=== PATIENT | male | born 1985 | race Caucasian/White ===

== ENCOUNTER → 2022-02-27 11:53 | Outpatient (BNVA) | payer SELFPAY | PROVIDERS: Visit Provider Emergency Medicine | DX: R07.9 Chest pain, unspecified (principal); R09.1 Pleurisy; J40 Bronchitis, not specified as acute or chronic | CPT/HCPCS: 71046 ==

== ENCOUNTER → 2022-06-25 16:11 | Outpatient (BNVA) | payer OTHER, SELFPAY | PROVIDERS: Visit Provider Nurse Practitioner | DX: Z79.899 Other long term (current) drug therapy (principal) | CPT/HCPCS: 80061; 83036 ==

== ENCOUNTER 2023-03-09 21:36 | Inpatient (IN) | payer MEDICAID, SELFPAY ==
--- NOTE | 2023-03-09 21:45 | ED.C_ITS ---
HPI - Psych 2 General: Chief Complaint: Psychiatric Symptoms Stated Complaint: MHE Eval Time Seen by Provider: 03/09/23 21:39 Source: patient Mode of arrival: ambulatory Limitations: no limitations History of Present Illness: 37-year-old male has a history of schizo phrenia states he used to be on Abilify has not been on meds for quite some time. Patient states has been feeling delusional he appears quite manic here he has loose is associations very pressured speech she is telling me that he is discovered new ground breaking ways in the marijuana growth cycle that is not making any sense. He states that he is feeling like he is may be having delusions and paranoia and does feel manic as well. He states he was admitted to the [facility] 7 years ago he did use meth 3 weeks ago Associated symptoms: Reports delusions; Deny depression Review of Systems 2 Const: Denies: fever(s), chills, body aches or change in appetite ENMT: Denies: throat pain or dental pain Card: Denies: chest pain Resp: Denies: dyspnea GI: Denies: abdominal pain, nausea, vomiting or diarrhea Musc: Denies: neck pain or back pain Skin/Breast: Denies: rash Neuro: Denies: headache(s) Psych: Reports: mood swings and paranoia; Denies: depression Cedric/Lymph: Denies: easy bruising All/Imm: Denies: urticaria PFSH ED 2 PFSH: Medical History Major depressive disorder, recurrent, 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, mild, in early remission Other stimulant dependence, in remission Alcohol dependence, in remission Nicotine dependence, cigarettes, uncomplicated Major depressive disorder, recurrent severe without psychotic features Cannabis dependence, uncomplicated Psychiatric care Family History Grandmother Cancer Grandfather Cancer prostate CA Family/Other Cancer Family/Other Cancer Mother Graves disease Denies family history of Diabetes CAD (coronary artery disease) Clotting disorder Dementia Hyperlipidemia Psychiatric illness Chronic kidney disease (CKD) Anesthesia complication Bleeding disorder Lung disease Hypertension Stroke Social History Smoking and tobacco/nicotine status: current every day tobacco/nicotine user cigarettes Packs smoked per day: 1 [ Other cigarette details: 1PPD, 20PY] Alcohol intake: former Former alcohol use details: quit 1yr ago Substance/Drug Use: current Substance/Drug use frequency: daily Lives independently: Yes Marital status: Single Number of children: 0 Current occupational status: unemployed Current gender identity: Male Physical Exam 2 Const: COMMON NORMALS: patient oriented x3 HENMT: COMMON NORMALS: normocephalic and atraumatic HEAD & SCALP: n ormocephalic and atraumatic Eye: COMMON NORMALS: Equal, round and reactive pupils present and EOMs intact bilaterally PUPIL: Yes Equal, round and reactive pupils present Neck/C-Spine: COMMON NORMALS: full ROM and supple Chest: COMMONS NORMALS: normal inspection of the chest Resp: COMMON NORMALS: normal respiratory effort Cardio: COMMON NORMALS: regular rhythm and No murmurs present (Cardio) R ATE: tachycardic RHYTHM: regular rhythm GI: COMMON NORMALS: Normal to inspection, nondistended, normoactive bowel sounds present, Soft to palpation, non-tender and no masses PALPATION: Yes Soft to palpation Extremity: COMMON NORMALS: normal to inspection and full ROM Neuro: COMMON NORMALS: patient oriented x3, moves all extremities and no focal motor deficits Psych: COMMON NORMALS: mental status grossly normal and cooperative SPEECH: Yes excessive MOOD & AFFECT: Yes elevated mood THOUGHT PROCESS: Loose association thought process present and racing thoughts THOUGHT CONTENT: Yes delusions Skin: COMMON NORMALS: no rashes or lesions noted and no wounds GENERAL SKIN EXAM: no rashes or lesions noted Course 2 Vital Signs: Vital signs: Vital Signs Temperature 97.6 F 03/09/23 21:49 Pulse Rate 141 H 03/09/23 21:49 Respiratory Rate 18 03/09/23 21:49 Blood Pressure 138/112 03/09/23 21:49 Pulse Oximetry 98 03/09/23 21:49 Oxygen Delivery Me thod Room Air 03/09/23 21:49 MDM - Psych Medical Decision Making Patient presents here with acute psychosis along with delusions patient is medically cleared placed under 96-hour hold spoke to psychiatrist will admit. Medical Records I reviewed the patient's medical records. Lab Data I reviewed the patient's lab results. 03/09/23 21:50 03/09/23 21:50 Laboratory Results WBC 9.16 10^3/uL (3.29-11.43) 03/09/23 21:50 RBC 5.27 10^6/uL (3.85-5.65) 03/09/23 21:50 Hgb 16.00 g/dL (11.27-16.99) 03/09/23 21:50 Hct 47.5 % (37-53) 03/09/23 21:50 MCV 90.1 fl (82-101) 03/09/23 21:50 MCH 30.4 pg (27-33) 03/09/23 21:50 MCHC 33.7 g/dL (30-55) 03/09/23 21:50 RDW 14.6 % (12.1-15.1) 03/09/23 21:50 Plt Count 171 10^3/cmm (157-399) 03/09/23 21:50 MPV 10.6 fL (7.4-10.4) H 03/09/23 21:50 Neut % (Auto) 67.6 % 03/09/23 21:50 Lymph % (Auto) 25.3 % 03/09/23 21:50 Gilliam % (Auto) 5.9 % 03/09/23 21:50 Eos % (Auto) 0.1 % 03/09/23 21:50 Baso % (Auto) 0.9 % 03/09/23 21:50 Neut # (Auto) 6.19 10^3/uL (1.8-7.7) 03/09/23 21:50 Lymph # (Auto) 2.3 10^3/uL (0.8-4.8) 03/09/23 21:50 Gilliam # (Auto) 0.5 10^3/uL (0.2-0.9) 03/09/23 21:50 Eos # (Auto) 0.0 10^3/uL (0.0-0.8) 03/09/23 21:50 Baso # (Auto) 0.1 10^3/uL (0.0-0.1) 03/09/23 21:50 Nucleated RBC % (auto) 0 % 03/09/23 21:50 Nucleated RBCs # 0.0 /100WBC 03/09/23 21:50 Sodium 135 mmol/L (136-145) L 03/09/23 21:50 Potassium 3.9 mmol/L (3.5-5.1) 03/09/23 21:50 Chloride 97 mmol/L (98-107) L 03/09/23 21:50 Carbon Dioxide 17 mmol/L (22-29) L 03/09/23 21:50 Anion Gap 24.9 (5-19) H 03/09/23 21:50 BUN 9 mg/dL (6-20) 03/09/23 21:50 Creatinine 1.1 mg/dL (0.7-1.2) 03/09/23 21:50 GFR Calculation 76.2 mL/min (90-130) L 03/09/23 21:50 Glucose 164 mg/dL (65-115) H 03/09/23 21:50 Calculated Osmolality 282 mOsm/kg (285-295) L 03/09/23 21:50 Calcium 10.2 mg/dL (8.5-10.5) 03/09/23 21:50 Total Bilirubin 0.5 mg/dL (0.15-1.2) 03/09/23 21:50 AST 16 U/L (0-40) 03/09/23 21:50 ALT 7 U/L (0-41) 03/09/23 21:50 Alkaline Phosphatase 80 U/L (40-130) 03/09/23 21:50 Total Protein 8.1 g/dL (6.6-8.7) 03/09/23 21:50 Albumin 5.1 g/dL (3.5-5.2) 03/09/23 21:50 Globulin 3.0 g/dL (1.3-4.6) 03/09/23 21:50 Salicylates < 0.3 mg/dL (3-10) L 03/09/23 21:50 Urine Opiates Screen Negative ng/mL (Negative) 03/09/23 22:05 Acetaminophen < 5.0 ug/mL (10-30) L 03/09/23 21:50 Ur Barbiturates Screen Negative ng/mL (Negative) 03/09/23 22:05 Ur Phencyclidine Scrn Negative ng/mL (Negative) 03/09/23 22:05 Ur Amphetamines Screen Negative ng/mL (Negative) 03/09/23 22:05 U Benzodiazepines Scrn Negative ng/mL (Negative) 03/09/23 22:05 Urine Cocaine Screen Negative ng/mL (Negative) 03/09/23 22:05 U Marijuana (THC) Screen Positive ng/mL (Negative) H 03/09/23 22:05 Ethyl Alcohol < 10 mg/dL (0-10) 03/09/23 21:50 No radiology studies performed this visit Discharge Plan Discharge Patient Disposition: Admitted As Inpatient Clinical Impression: Acute psychosis Condition: Stable Coding Level of Care Code ED Recreation Activities Coordinator for Stevie Forde
[2023-03-09 21:49] VITALS: BP 138/112; PULSE 141; RESP 18; TEMP 36.4; O2SAT 98; BMI 20.5
[2023-03-09 21:58] LABS: Basophils # 0.1 10^3/uL (0.0-0.1); Basophils % 0.9 %; Eosinophils % 0.1 %; Hematocrit 47.5 % (37-53); Lymphocytes # 2.3 10^3/uL (0.8-4.8); Lymphocytes % 25.3 %; Mean Corpuscular HGB Conc 33.7 g/dL (30-55); Mean Corpuscular Hemoglobin 30.4 pg (27-33); Mean Corpuscular Volume 90.1 fl (82-101); Mean Platelet Volume 10.6 fL (7.4-10.4); Monocytes # 0.5 10^3/uL (0.2-0.9); Monocytes % 5.9 %; Neutrophils # 6.19 10^3/uL (1.8-7.7); Neutrophils % 67.6 %; Nucleated Red Blood Cells % 0 %; Platelet Count 171 10^3/cmm (157-399); Red Blood Count 5.27 10^6/uL (3.85-5.65); Red Cell Distribution Width 14.6 % (12.1-15.1); White Blood Count 9.16 10^3/uL (3.29-11.43)
[2023-03-09] MEDS: haloperidol inj 5 mg/mL INJ 1 mL IM (22:07)
[2023-03-09 22:13] LABS: Alanine Aminotransferase 7 U/L (0-41); Albumin Level 5.1 g/dL (3.5-5.2); Alkaline Phosphatase 80 U/L (40-130); Aspartate Amino Transferase 16 U/L (0-40); Blood Urea Nitrogen 9 mg/dL (6-20); Calcium 10.2 mg/dL (8.5-10.5); Carbon Dioxide 17 mmol/L (22-29); Chloride 97 mmol/L (98-107); Glomerular Filtration Rate 76.2 mL/min (90-130); Glucose 164 mg/dL (65-115); Osmolality Calculated 282 mOsm/kg (285-295); Sodium 135 mmol/L (136-145); Total Bilirubin 0.5 mg/dL (0.15-1.2); Total Protein 8.1 g/dL (6.6-8.7)
[2023-03-09 22:19] LABS: Acetaminophen < 5.0 ug/mL (10-30); Alcohol Level < 10 mg/dL (0-10); Anion Gap 24.9 (5-19); Potassium 3.9 mmol/L (3.5-5.1); Salicylate < 0.3 mg/dL (3-10)
[2023-03-09 22:22] LABS: Slide Review Slide Review Perform
[2023-03-09 22:25] LABS: Amphetamines Screen Urine Negative (Negative); Barbiturates Screen Urine Negative (Negative); Benzodiazepines Screen Urine Negative (Negative); Cocaine Screen Urine Negative (Negative); Opiate Screen Urine Negative (Negative); PCP Screen Urine Negative (Negative); THC Screen Urine Positive (Negative)
--- NOTE | 2023-03-09 22:32 | PC.NURSE ---
Pt served with copy of 96 Hour hold by this RN and physician. Pt is manic and unable to calm enough to listen to instructions.
[2023-03-09 22:36] VITALS: BP 106/63; PULSE 107; RESP 18; TEMP 36.5; O2SAT 96
[2023-03-09 22:40] VITALS: BP 103/73; PULSE 103; RESP 16; O2SAT 100
[2023-03-09 22:58] VITALS: BP 103/73; PULSE 103; RESP 16; TEMP 36.4; O2SAT 100
[2023-03-09] MEDS: nicotine 2 mg Gum BUCCAL (23:12)
[2023-03-10 06:00] VITALS: RESP 16
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
[2023-03-10 14:00] VITALS: BP 113/71; PULSE 85; RESP 15; TEMP 36.9; O2SAT 95
[2023-03-10] MEDS: nicotine 2 mg Gum BUCCAL (14:36)
[2023-03-10] MEDS: paliperidone ER 6 mg Tablet PO (18:09)
[2023-03-10 20:15] VITALS: RESP 16
[2023-03-11 06:00] VITALS: BP 104/66; PULSE 76; RESP 16; TEMP 36.5; O2SAT 99
[2023-03-11] MEDS: nicotine 4 mg lozenge MUCOUS MEM (06:02)
[2023-03-11] MEDS: paliperidone ER 6 mg Tablet PO (08:46)
[2023-03-11] MEDS: nicotine 21 mg Patch 1 PATCH TRANSDERMA (10:32)
--- NOTE | 2023-03-11 13:47 | P.NPUPN_ITS ---
Subjective NPU 2 Subjective: Patient presented today reporting that he is ready to go home. However he continued to demonstrate the confusion and psychosis consistent with yesterday. He continued to have flight of ideas per staff and direct observation with his conversation seeming fairly manic and him just speaking words until he ran out of breath. He tried his best to communicate reasons for being appropriate for discharge but none of them made sense and most of them were just a collection of words that approximated can I leave. Mental Status Exam 2 MSE Comments: This is a short diminutive white male in hospital scrubs with limited grooming and eye contact. No abnormal movements except for significant psychomotor agitation. Somewhat cooperative with exam and moderate distress. Speech was increased rate and volume and fairly pressured. Mood described as okay, affect hyper. Thought process disorganized then tangential. Thought content: Patient denied suicidal or homicidal ideation, there were no delusions reported but clear paranoia and persecutory delusions noted, he did not report auditory or visual hallucinations. Attention and concentration was impaired and memory was unreliable but none were formally tested. He is alert and oriented to person and place. Insight, judgment and impulse control are impaired. Vitals/I&O/Wt Last Vital Signs Temp 97.7 F 03/11/23 06:00 Pulse 76 03/11/23 06:00 Resp 16 03/11/23 06:00 BP 104/66 03/11/23 06:00 Pulse Ox 99 03/11/23 06:00 O2 Del Method Room Air 03/11/23 06:00 Weight last 48 hrs Weight 54.431 kg Data NPU 03/09/23 21:50 03/09/23 21:50 A&P Assessment and plan (1) Acute psychosis: (2) Methamphetamine use disorder, severe: (3) Nicotine dependence, cigarettes, uncomplicated: (4) Cannabis dependence, uncomplicated: Plan This is a 37-year-old white male with a long history of addiction, mental health treatment and psychosis as far back as 5 to 6 years ago with methamphetamine seeming to be the inciting presence who presents with florid psychosis and intermittent reports of active drug use considering a trial of Invega. 1.? Continue current medication. Initiate Invega 6 mg p.o. daily. 2.? Encourage individual, group, and milieu therapy. 3.? Continue q-15-minute checks for safety. 4.? Recommend sober living treatment at the highest level of care to which the patient is willing to commit. Involuntary Hold Information 2 96 Hour Hold: 96 Hour Involuntary Admission: Yes 96 Hour Hold Ending Date: 03/15/23 96 Hour Hold Ending Time: 22:00 Attestations NPU 2 Medical Necessity Statement*: Inpatient hospitalization is medically necessary and the clinically appropriate intervention, at this time. We will monitor medications and make changes as indicated. Likely length of stay is three to five days. Coding Level of Care Code Acute Code for g Fwd Diagnoses Acute psychosis F23 Methamphetamine use disorder, severe F15.20 Nicotine dependence, cigarettes, uncomplicated F17.210 Cannabis dependence, uncomplicated F12.20
[2023-03-11 14:00] VITALS: BP 120/78; PULSE 88; RESP 16; TEMP 36.7; O2SAT 98
[2023-03-11] MEDS: haloperidol 5 mg Tablet PO (20:20)
[2023-03-11] MEDS: trazodone 50 mg Tablet PO (20:20)
[2023-03-11 20:29] VITALS: BP 124/84; PULSE 118; RESP 18; TEMP 36.7; O2SAT 98
--- NOTE | 2023-03-11 21:18 | PC.NURSE ---
IN ROOM RESTING AROUSES TO VOICE. PT STATES HE IS WANTING TO LEAVE AND GIVE GUARDIANSHIP TO HIS FATHER. PT INFORMED THAT HE WOULD NEED TO TALK TO DR. DENIS ABOUT DISCHARGING. PT CONTINUED TO HAVE RAPID SPEECH AND ANIMATED.PT DENIES SI/HI AND AVH AT THIS TIME. RATES ANXIETY 09/05 AND DEPRESSION /. HALDOL 5 MG GIVEN ORDERED FOR ANXIEYTY. DENIES PAIN. PT CONTINUED TO SPEAK IN RAPID PACE AND HAVE LOOSE ASSOCIATIONS. TRAZODONE 50 MG GIVEN ORDERED FOR INSOMNIA. ALL QUESTIONS ANSWERED AND SUPPORT VOICED.
[2023-03-12 06:00] VITALS: RESP 15
--- NOTE | 2023-03-12 06:46 | PC.NURSE ---
Unable to obtain patients vitals due to patient sleeping. RR obtained.
--- NOTE | 2023-03-12 08:33 | P.NPUPN_ITS ---
Subjective NPU 2 Subjective: Patient presented today reporting that he feels like he is getting better. Staff reports of continued disorganization also noted on direct observation. We discussed Dr. Fortune returning tomorrow with an ability to give a fresh opinion on his fitness to leave. Mental Status Exam 2 MSE Comments: This is a short diminutive white male in hospital scrubs with limited grooming and eye contact. No abnormal movements except for significant psychomotor agitation. Somewhat cooperative with exam in mild to moderate distress. Speech was increased rate and volume and fairly pressured. Mood described as okay, affect hyper. Thought process disorganized then tangential. Thought content: Patient denied suicidal or homicidal ideation, there were no delusions reported but clear paranoia and persecutory delusions noted, he did not report auditory or visual hallucinations. Attention and concentration was impaired and memory was unreliable but none were formally tested. He is alert and oriented to person and place. Insight, judgment and impulse control are impaired. Vitals/I&O/Wt Last Vital Signs Temp 98.0 F 03/11/23 20:29 Pulse 118 H 03/11/23 20:29 Resp 15 03/12/23 06:00 BP 124/84 03/11/23 20:29 Pulse Ox 98 03/11/23 20:29 O2 Del Method Room Air 03/11/23 20:29 Data NPU 03/09/23 21:50 03/09/23 21:50 A&P Assessment and plan (1) Acute psychosis: (2) Methamphetamine use disorder, severe: (3) Nicotine dependence, cigarettes, uncomplicated: (4) Cannabis dependence, uncomplicated: Plan This is a 37-year-old white male with a long history of addiction, mental health treatment and psychosis as far back as 5 to 6 years ago with methamphetamine seeming to be the inciting presence who presents with florid psychosis and intermittent reports of active drug use considering a trial of Invega. 1.? Continue current medication. Initiated Invega 6 mg p.o. daily. 2.? Encourage individual, group, and milieu therapy. 3.? Continue q-15-minute checks for safety. 4.? Recommend sober living treatment at the highest level of care to which the patient is willing to commit. Involuntary Hold Information 2 96 Hour Hold: 96 Hour Involuntary Admission: Yes 96 Hour Hold Ending Date: 03/15/23 96 Hour Hold Ending Time: 22:00 Attestations NPU 2 Medical Necessity Statement*: Inpatient hospitalization is medically necessary and the clinically appropriate intervention, at this time. We will monitor medications and make changes as indicated. The patient's likely length of stay is three to five days. Coding Level of Care Code Acute Code for [facility] Fwd Diagnoses Acute psychosis F23 Methamphetamine use disorder, severe F15.20 Nicotine dependence, cigarettes, uncomplicated F17.210 Cannabis dependence, uncomplicated F12.20
[2023-03-12] MEDS: nicotine 21 mg Patch 1 PATCH TRANSDERMA (09:00)
[2023-03-12] MEDS: paliperidone ER 6 mg Tablet PO (09:00)
[2023-03-12] MEDS: hyDROXYzine 25 mg Capsule 50 MG PO ×2 (13:30→20:05)
[2023-03-12 14:00] VITALS: BP 111/78; PULSE 76; RESP 14; O2SAT 97
[2023-03-12] MEDS: trazodone 50 mg Tablet PO (20:05)
[2023-03-12 20:33] VITALS: BP 110/74; PULSE 153; RESP 20; O2SAT 99
[2023-03-13 06:00] VITALS: BP 110/69; PULSE 142; RESP 16; TEMP 36.4; O2SAT 96
[2023-03-13] MEDS: paliperidone ER 6 mg Tablet PO (07:57)
[2023-03-13] MEDS: nicotine 21 mg Patch 1 PATCH TRANSDERMA (09:49)
[2023-03-13 14:00] VITALS: BP 138/84; PULSE 106; RESP 18; TEMP 36.3; O2SAT 97
--- NOTE | 2023-03-13 17:03 | P.NPUPN_ITS ---
Subjective NPU 2 Subjective: 37 year old male with history of psychos is admitted with rapid speech, confusion and psychosis. Patient had reported that he felt ready to go home today. Despite this claim, he continued to appear confused and stated that he continued to feel as if his problem previously had to do with methamphetamine use but now he states that it may be due to the fact that he has schizophrenia. He continued to speak rapidly and stated that he required something to control his anxiety. He had reported having difficulties falling asleep. The patient had continued to ramble about wanting to go home but it appeared to be nearly nonsensical in regards to understanding why he was ready to go home and ultimately concluded with him stated simply stating that he wanted to leave . Mental Status Exam 2 MSE Comments: This is a short diminutive white male in hospital scrubs with limited grooming and eye contact. No abnormal movements except for significant psychomotor agitation. Somewhat cooperative with exam and moderate distress. Speech was increased rate and volume and pressured while requiring interruption. Mood described as allright. His affect was overactive. Thought process remained disorganized. Thought content: Patient denied suicidal or homicidal ideation. There were no delusions reported but clear paranoia and persecutory delusions noted, he did not report auditory or visual hallucinations. Attention and concentration was impaired and memory was unreliable but none were formally tested. He is alert and oriented to person and place. Insight, judgment and impulse control are impaired. Vitals/I&O/Wt Last Vital Signs Temp 97.4 F L 03/13/23 14:00 Pulse 106 H 03/13/23 14:00 Resp 18 03/13/23 14:00 BP 138/84 03/13/23 14:00 Pulse Ox 97 03/13/23 14:00 O2 Del Method Room Air 03/13/23 14:00 Data NPU 03/09/23 21:50 03/09/23 21:50 A&P Assessment and plan (1) Acute psychosis: (2) Methamphetamine use disorder, severe: (3) Nicotine dependence, cigarettes, uncomplicated: (4) Cannabis dependence, uncomplicated: Plan This is a 37-year-old white male with a long history of addiction, mental health treatment and psychosis as far back as 5 to 6 years ago with methamphetamine seeming to be the inciting presence who presents with florid psychosis and intermittent reports of active drug use considering a trial of Invega. 1.? Continue current medication. Continue Invega 6 mg p.o. daily. 2.? Encourage individual, group, and milieu therapy. 3.? Continue q-15-minute checks for safety. 4.? Recommend sober living treatment at the highest level of care to which the patient is willing to commit. Involuntary Hold Information 2 96 Hour Hold: 96 Hour Involuntary Admission: Yes 96 Hour Hold Ending Date: 03/15/23 96 Hour Hold Ending Time: 22:00 Attestations NPU 2 Medical Necessity Statement*: Inpatient hospitalization is medically necessary and the clinically appropriate intervention, at this time. We will monitor medications and make changes as indicated. The patient's likely length of stay is three to five days. Coding Level of Care Code Acute Code for [facility] Fwd Diagnoses Acute psychosis F23 Methamphetamine use disorder, severe F15.20 Nicotine dependence, cigarettes, uncomplicated F17.210 Cannabis dependence, uncomplicated F12.20
[2023-03-13] MEDS: trazodone 50 mg Tablet PO (20:02)
[2023-03-13] MEDS: hyDROXYzine 25 mg Capsule 50 MG PO (20:02)
[2023-03-13 20:12] VITALS: BP 132/89; PULSE 110; RESP 18; TEMP 36.3; O2SAT 97
[2023-03-14 06:00] VITALS: BP 111/67; PULSE 98; RESP 14; TEMP 36.8; O2SAT 99
[2023-03-14] MEDS: nicotine 21 mg Patch 1 PATCH TRANSDERMA (06:27)
[2023-03-14] MEDS: paliperidone ER 6 mg Tablet PO (08:05)
--- NOTE | 2023-03-14 12:43 | P.NPUPN_ITS ---
Subjective NPU 2 Subjective: 37 year old male with history of psychos is admitted with rapid speech, confusion and psychosis. Patient had reported that the Invega has been helpful. He reports that he needed to speak with Dariana Clarke. He had acknowledged that he had not been taking his antipsychotic medication in several months prior to his admission here. He reports that he had been without methamphetamine use but stated that his paranoia had been worse despite him remaining off of any illicit drugs. He had reported his last use of methamphetamine as having been 1 month ago. The patient had reported that his thoughts were moving fast. He had reported that he was sleeping better. Mental Status Exam 2 MSE Comments: This is a short diminutive white male in hospital scrubs with limited grooming and eye contact. No abnormal movements except for significant psychomotor agitation. He was more cooperative with exam and moderate distress. Speech remained pressured with normal volume but nonstop. Mood described as better. His affect was overactive. Thought process remained, nonlinear, disorganized. Thought content: Patient denied suicidal or homicidal ideation. There were no delusions reported but clear paranoia noted. He did not report auditory or visual hallucinations. Attention and concentration was impaired and memory was unreliable but none were formally tested. He is alert and oriented to person and place. Insight, judgment and impulse control are impaired. Vitals/I&O/Wt Last Vital Signs Temp 98.2 F 03/14/23 06:00 Pulse 98 03/14/23 06:00 Resp 14 03/14/23 06:00 BP 111/67 03/14/23 06:00 Pulse Ox 99 03/14/23 06:00 O2 Del Method Room Air 03/14/23 06:00 Weight last 48 hrs Weight 57.776 kg Data NPU 03/09/23 21:50 03/09/23 21:50 A&P Assessment and plan (1) Acute psychosis: (2) Methamphetamine use disorder, severe: (3) Nicotine dependence, cigarettes, uncomplicated: (4) Cannabis dependence, uncomplicated: Plan This is a 37-year-old white male with a long history of addiction, mental health treatment and psychosis as far back as 5 to 6 years ago with methamphetamine seeming to be the inciting presence who presents with florid psychosis and intermittent reports of active drug use considering a trial of Invega. 1.? Continue current medication. Continue Invega 6 mg p.o. daily. 2.? Encourage individual, group, and milieu therapy. 3.? Continue q-15-minute checks for safety. 4.? Recommend sober living treatment at the highest level of care to which the patient is willing to commit. Involuntary Hold Information 2 96 Hour Hold: 96 Hour Involuntary Admission: Yes 96 Hour Hold Ending Date: 03/15/23 96 Hour Hold Ending Time: 22:00 Attestations NPU 2 Medical Necessity Statement*: Inpatient hospitalization is medically necessary and the clinically appropriate intervention, at this time. We will monitor medications and make changes as indicated. The patient's likely length of stay is three to five days. Coding Level of Care Code Acute Code for [facility] Fwd Diagnoses Acute psychosis F23 Methamphetamine use disorder, severe F15.20 Nicotine dependence, cigarettes, uncomplicated F17.210 Cannabis dependence, uncomplicated F12.20
[2023-03-14 14:00] VITALS: BP 101/63; PULSE 107; RESP 14; TEMP 36.9; O2SAT 97
[2023-03-14] MEDS: hyDROXYzine 25 mg Capsule 50 MG PO (19:16)
[2023-03-14] MEDS: trazodone 50 mg Tablet PO (19:17)
[2023-03-14 19:29] VITALS: BP 118/70; PULSE 99; RESP 18; TEMP 36.3; O2SAT 94
[2023-03-15 06:00] VITALS: BP 133/84; PULSE 97; RESP 18; O2SAT 97
[2023-03-15] MEDS: paliperidone ER 6 mg Tablet PO (07:35)
[2023-03-15] MEDS: nicotine 21 mg Patch 1 PATCH TRANSDERMA (07:41)
[2023-03-15 14:00] VITALS: BP 122/78; PULSE 104; RESP 16; TEMP 36.9; O2SAT 98
--- NOTE | 2023-03-15 15:26 | P.NPUPN_ITS ---
Subjective NPU 2 Subjective: 37 year old male with history of psychos is admitted with rapid speech, confusion and psychosis. The patient had reported feeling more optimistic. He reported no side effects from his medications. Patient reported that his thoughts were moving faster initially but were now slowed down considerably since starting the Invega. He stated that he had not seen Mr. Clarke at the [facility] in over 6 months and it discontinued these medications. He had reported having difficulties with falling asleep in the absence of trazodone at night. Staff notes patient had been redirectable but continues to isolate himself on the milieu. He had reported that he had previously used methamphetamine to help with energy but stated that he had not used in several weeks and despite this he still had the reemergence of manic symptoms in the absence of taking an antipsychotic that he had previously been prescribed at the [facility]. Mental Status Exam 2 MSE Comments: This is a short diminutive white male in hospital scrubs with limited grooming and eye contact. No abnormal motor movements were appreciated. There is no evidence of psychomotor agitation or psychomotor retardation today. He was more cooperative with exam and moderate distress. Speech remained pressured with normal volume but was not nonstop today. Mood described as optimistic. His affect was excessively euphoric still. Thought process was linear and logical today. Thought content: Patient denied suicidal or homicidal ideation. There were no delusions reported but clear paranoia noted. He did not report auditory or visual hallucinations. Attention and concentration was impaired and memory was unreliable but none were formally tested. He is alert and oriented to person and place. Insight was improving. His judgment and impulse control are poor. Vitals/I&O/Wt Last Vital Signs Temp 98.4 F 03/15/23 14:00 Pulse 104 H 03/15/23 14:00 Resp 16 03/15/23 14:00 BP 122/78 03/15/23 14:00 Pulse Ox 98 03/15/23 14:00 O2 Del Method Room Air 03/15/23 14:00 Weight last 48 hrs Weight 57.776 kg Data NPU 03/09/23 21:50 03/09/23 21:50 A&P Assessment and plan (1) Acute psychosis: (2) Methamphetamine use disorder, severe: (3) Nicotine dependence, cigarettes, uncomplicated: (4) Cannabis dependence, uncomplicated: Plan This is a 37-year-old white male with a long history of addiction, mental health treatment and psychosis as far back as 5 to 6 years ago with methamphetamine seeming to be the inciting presence who presents with florid psychosis and intermittent reports of active drug use considering a trial of Invega. 1.? Continue current medication. Continue Invega 6 mg p.o. daily. He appears to be improving substantially at this time. 2.? Encourage individual, group, and milieu therapy. 3.? Continue q-15-minute checks for safety. 4.? Recommend sober living treatment at the highest level of care to which the patient is willing to commit. Involuntary Hold Information 2 96 Hour Hold: 96 Hour Involuntary Admission: Yes 96 Hour Hold Ending Date: 03/15/23 96 Hour Hold Ending Time: 22:00 Attestations NPU 2 Medical Necessity Statement*: Inpatient hospitalization is medically necessary and the clinically appropriate intervention, at this time. We will monitor medications and make changes as indicated. The patient's likely length of stay is three to five days. Coding Level of Care Code Acute Code for [facility] Fwd Diagnoses Acute psychosis F23 Methamphetamine use disorder, severe F15.20 Nicotine dependence, cigarettes, uncomplicated F17.210 Cannabis dependence, uncomplicated F12.20
[2023-03-15 19:48] VITALS: BP 112/74; PULSE 105; RESP 16; TEMP 36.8; O2SAT 97
[2023-03-15] MEDS: hyDROXYzine 25 mg Capsule 50 MG PO (19:50)
[2023-03-15] MEDS: trazodone 50 mg Tablet PO (19:50)
[2023-03-16 06:00] VITALS: BP 119/82; PULSE 94; RESP 15; TEMP 36.4; O2SAT 98
[2023-03-16] MEDS: nicotine 2 mg Gum BUCCAL (06:46)
[2023-03-16] MEDS: paliperidone ER 6 mg Tablet PO (07:40)
[2023-03-16] MEDS: nicotine 21 mg Patch 1 PATCH TRANSDERMA (09:28)
[2023-03-16 11:26] VITALS: BP 119/82; PULSE 94; RESP 15; TEMP 36.4; O2SAT 98
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
[2023-03-16 13:23] VITALS: BP 119/82; PULSE 94; RESP 15; TEMP 36.4; O2SAT 98
== END 2023-03-16 14:08 | disposition home or self-care (01) | DRG 897 ==
LOC: ER 22:00 → NP 22:34
PROVIDERS: Admitting Provider Psychiatry & Neurology Psychiatry; Emergency Provider Emergency Medicine; Visit Provider Psychiatry & Neurology Psychiatry
DX: F15.259 Other stimulant dependence with stimulant-induced psychotic disorder, unspecified (principal); F10.21 Alcohol dependence, in remission; F20.9 Schizophrenia, unspecified; F17.210 Nicotine dependence, cigarettes, uncomplicated; F12.20 Cannabis dependence, uncomplicated; Z56.0 Unemployment, unspecified
CPT/HCPCS: 80053; 80306; 80307; 85025; 96372; 97150; 97165; 99285; J1630; J2060

== ENCOUNTER 2023-03-23 11:57 | Emergency (ER) | payer MEDICAID, SELFPAY ==
[2023-03-23 12:15] VITALS: BP 114/75; PULSE 122; RESP 16; TEMP 36.9; O2SAT 98; BMI 21.8
--- NOTE | 2023-03-23 13:02 | W.ED.GENADLT ---
HPI - General Adult General: Chief complaint: General Medical Stated complaint: memory loss Time Seen by Provider: 03/23/23 12:24 Source: patient Mode of arrival: ambulatory Limitations: no limitations History of Present Illness: 37-year-old male with a history of schizophrenia had been admitted here recently states that since starting his new meds he feels like he has had some short-term memory loss he has been hearing some voices but he feels much improved had seen him when he was admitted 2 weeks ago and he is much improved here currently denies any SI or HI denies any worsening proving factors. Associated symptoms: Deny chest pain, dyspnea, headache(s), nausea, rash or vomiting Review of Systems Const: Denies: fever(s), chills, body aches or change in appetite ENMT: Denies: throat pain or dental pain Card: Denies: chest pain Resp: Denies: dyspnea GI: Denies: abdominal pain, nausea, vomiting or diarrhea Musc: Denies: neck pain or back pain Skin/Breast: Denies: rash Neuro: Denies: headache(s) Psych: Reports: auditory hallucinations; Denies: depression PFSH ED PFSH: Medical History Major depressive disorder, recurrent, 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, mild, in early remission Other stimulant dependence, in remission Alcohol dependence, in remission Nicotine dependence, cigarettes, uncomplicated Major depressive disorder, recurrent severe without psychotic features Cannabis dependence, uncomplicated Psychiatric care Family History Grandmother Cancer Grandfather Cancer prostate CA Family/Other Cancer Family/Other Cancer Mother Graves disease Denies family history of Diabetes CAD (coronary artery disease) Clotting disorder Dementia Hyperlipidemia Psychiatric illness Chronic kidney disease (CKD) Anesthesia complication Bleeding disorder Lung disease Hypertension Stroke Social History Smoking and tobacco/nicotine status: current every day tobacco/nicotine user cigarettes Packs smoked per day: 1 [ Other cigarette details: 1PPD, 20PY] Alcohol intake: former Former alcohol use details: quit 1yr ago Substance/Drug Use: current Substance/Drug use frequency: daily Lives independently: Yes Marital status: Single Number of children: 0 Current occupational status: unemployed Current gender identity: Male Physical Exam Const: COMMON NORMALS: no acute distress, patient oriented x3 and healthy appearing HENMT: COMMON NORMALS: normocephalic and atraumatic HEAD & SCALP: normocephalic and atraumatic Eye: COMMON NORMALS: Equal, round and reactive pupils present and EOMs intact bilaterally PUPIL: Yes Equal, round and reactive pupils present Neck/C-Spine: COMMON NORMALS: full ROM and supple Chest: COMMONS NORMALS: normal inspection of the chest Resp: COMMON NORMALS: normal respiratory effort Cardio: COMMON NORMALS: regular rate, regular rhythm and No murmurs present (Cardio) RATE: regular rate RHYTHM: regular rhythm Extremity: COMMON NORMALS: normal to inspection and full ROM Neuro: COMMON NORMALS: patient oriented x3, moves all extremities and no focal motor deficits Psych: COMMON NORMALS: mental status grossly normal, Normal thought process present and cooperative THOUGHT PROCESS: Normal thought process present Skin: COMMON NORMALS: no rashes or lesions noted and no wounds GENERAL SKIN EXAM: no rashes or lesions noted Course Vital Signs: Vital signs: Vital Signs Temperature 98.5 F 03/23/23 12:15 Pulse Rate 122 H 03/23/23 12:15 Respiratory Rate 16 03/23/23 12:15 Blood Pressure 114/75 03/23/23 12:15 Pulse Oximetry 98 03/23/23 12:15 Oxygen Delivery Me thod Room Air 03/23/23 12:15 MDM - General Adult Medical Decision Making Patient presents here with history schizophrenia is complaining of some slight memory loss he is well-appearing here he is not SI or HI does admit he still having some hallucinations I did offer him admission back to the MPU he states he feels improved he has follow-up with his psychiatrist next week I spoke to Dr. Pratt who knows patient well who feels he is stable for discharge as well since he is not acutely psychotic he is to return if worsening or go to the crisis center. No radiology studies performed this visit Discharge Plan Discharge Patient Disposition: Home Clinical Impression: Schizophrenia Qualifiers: Schizophrenia type: unspecified Qualified Code(s): F20.9 - Schizophrenia, unspecified Condition: Stable Prescriptions: No Action paliperidone 6 mg tablet extended release 24hr 6 mg PO DAILY Qty: 30 1RF Discharge Orders: Discharge ED (Routine); Ordered 03/23/23 Ordered By: Korby Miguel Angel Discharge Diet: Advance as tolerated Discharge Activity: Resume usual activity Patient Instructions: Schizophrenia (ED) Coding Level of Care Code ED Surveillance Supervisor for Stevie Forde
== END 2023-03-23 13:02 | disposition home or self-care (01) ==
PROVIDERS: Emergency Provider Emergency Medicine
DX: F20.9 Schizophrenia, unspecified (principal); F17.210 Nicotine dependence, cigarettes, uncomplicated
CPT/HCPCS: 99283

== ENCOUNTER 2023-03-27 05:11 | Inpatient (IN) | payer MEDICAID, SELFPAY ==
[2023-03-27 05:19] VITALS: BP 130/84; PULSE 99; RESP 20; TEMP 36.6; O2SAT 97; BMI 20.5
[2023-03-27 06:31] LABS: Basophils # 0.1 10^3/uL (0.0-0.1); Basophils % 0.7 %; Eosinophils # 0.1 10^3/uL (0.0-0.8); Eosinophils % 1.3 %; Hematocrit 40.7 % (37-53); Lymphocytes # 1.6 10^3/uL (0.8-4.8); Lymphocytes % 23.4 %; Mean Corpuscular HGB Conc 33.7 g/dL (30-55); Mean Corpuscular Hemoglobin 30.5 pg (27-33); Mean Corpuscular Volume 90.6 fl (82-101); Mean Platelet Volume 9.3 fL (7.4-10.4); Monocytes # 0.5 10^3/uL (0.2-0.9); Monocytes % 7.5 %; Neutrophils # 4.57 10^3/uL (1.8-7.7); Nucleated Red Blood Cells % 0 %; Platelet Count 210 10^3/cmm (157-399); Red Blood Count 4.49 10^6/uL (3.85-5.65); Red Cell Distribution Width 15.4 % (12.1-15.1); White Blood Count 6.83 10^3/uL (3.29-11.43)
--- NOTE | 2023-03-27 06:31 | W.ED.PSYCHS ---
HPI - Psych General: Chief Complaint: Psychiatric Symptoms Stated Complaint: cant think, remember, dementia Time Seen by Provider: 03/27/23 06:16 Source: patient Mode of arrival: ambulatory History of Present Illness: 37 yo male presents to the ER with complaints of difficulty with memory. He feels like he is forgetting things. He was recently hospitalized hallucinations he denies any hallucinations. Denies any suicidal or homicidal ideation. He was recently started on Invega. He is taking his regular medications he feels like the medications need to be adjusted because her seem to be bothering his memory. 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, mild, in early remission Other stimulant dependence, in remission Alcohol dependence, in remission Nicotine dependence, cigarettes, uncomplicated Major depressive disorder, recurrent severe without psychotic features Cannabis dependence, uncomplicated Psychiatric care Family History Grandmother Cancer Grandfather Cancer prostate CA Family/Other Cancer Family/Other Cancer Mother Graves disease Denies family history of Diabetes CAD (coronary artery disease) Clotting disorder Dementia Hyperlipidemia Psychiatric illness Chronic kidney disease (CKD) Anesthesia complication Bleeding disorder Lung disease Hypertension Stroke Social History Smoking and tobacco/nicotine status: current every day tobacco/nicotine user cigarettes Packs smoked per day: 1 [ Other cigarette details: 1PPD, 20PY] Alcohol intake: former Former alcohol use details: quit 1yr ago Substance/Drug Use: current Substance/Drug use frequency: daily Lives independently: Yes Marital status: Single Number of children: 0 Current occupational status: unemployed Current gender identity: Male Physical Exam Const: COMMON NORMALS: no acute distress GENERAL APPEARANCE: cooperative and comfortable ORIENTATION/CONSCIOUSNESS: Yes awake, Yes oriented to person, Yes oriented to place and Yes oriented to time HENMT: COMMON NORMALS: normocephalic, atraumatic and hearing grossly normal bilaterally HEAD & SCALP: normocephalic and atraumatic Resp: COMMON NORMALS: normal respiratory effort, No retractions, No use of accessory muscles and clear to auscultation bilaterally AUSCULTATION: clear to auscultation bilaterally Cardio: COMMON NORMALS: regular rate, regular rhythm and No murmurs present (Cardio) RATE: regular rate RHYTHM: regular rhythm GI: COMMON NORMALS: Soft to palpation and No hepatosplenomegaly present AUSCULTATION: Yes normoactive bowel sounds PALPATION: Yes Soft to palpation, No Tenderness to palpation present (GI), No Guarding due to palpation present (GI) and Yes No hepatosplenomegaly present Extremity: COMMON NORMALS: normal to inspection, capillary refill normal, no clubbing, cyanosis or edema, no calf tenderness and no pedal edema Neuro: SENSORIUM/ORIENTATION: Yes oriented to person, Yes oriented to place and Yes oriented to time Skin: COMMON NORMALS: no rashes or lesions noted GENERAL SKIN EXAM: no rashes or lesions noted Course Vital Signs: Vital signs: Vital Signs Temperature 97.8 F 03/27/23 05:19 Pulse Rate 99 03/27/23 05:19 Respiratory Rate 20 H 03/27/23 05:19 Blood Pressure 130/84 03/27/23 05:19 Pulse Oximetry 97 03/27/23 05:19 [facility] - Psych Medical Decision Making Patient rambling, reports loss of memory at times is difficult time tracking time. He relates that this began after he started the Invega.. He has a follow-up with [facility] but he is not sure of the timeframe for that. His previous hospitalization was reviewed. Discussed with Dr. Galvan. He recommends admission for medication adjustment. Medical Records I reviewed the patient's medical records. Lab Data I reviewed the patient's lab results. 03/27/23 06:23 03/27/23 06:23 Laboratory Results WBC 6.83 10^3/uL (3.29-11.43) 03/27/23 06:23 RBC 4.49 10^6/uL (3.85-5.65) 03/27/23 06:23 Hgb 13.70 g/dL (11.27-16.99) 03/27/23 06:23 Hct 40.7 % (37-53) 03/27/23 06: MCV 90.6 fl (82-101) 03/27/23 06: MCH 30.5 pg (27-33) 03/27/23 06: MCHC 33.7 g/dL (30-55) 03/27/23 06: RDW 15.4 % (12.1-15.1) H 03/27/23 06: Plt Count 210 10^3/cmm (157-399) 03/27/23 06:23 MPV 9.3 fL (7.4-10.4) 03/27/23 06:23 Neut % (Auto) 67.0 % 03/27/23 06: Lymph % (Auto) 23.4 % 03/27/23 06: Loving % (Auto) 7.5 % 03/27/23 06: Eos % (Auto) 1.3 % 03/27/23 06: Baso % (Auto) 0.7 % 03/27/23 06:23 Neut # (Auto) 4.57 10^3/uL (1.8-7.7) 03/27/23 06:23 Lymph # (Auto) 1.6 10^3/uL (0.8-4.8) 03/27/23 06:23 Loving # (Auto) 0.5 10^3/uL (0.2-0.9) 03/27/23 06:23 Eos # (Auto) 0.1 10^3/uL (0.0-0.8) 03/27/23 06:23 Baso # (Auto) 0.1 10^3/uL (0.0-0.1) 03/27/23 06:23 Nucleated RBC % (auto) 0 % 03/27/23 06: Nucleated RBCs # 0.0 /100WBC 03/27/23 06:23 Sodium 138 mmol/L (136-145) 03/27/23 06:23 Potassium 4.1 mmol/L (3.5-5.1) 03/27/23 06:23 Chloride 103 mmol/L (98-107) 03/27/23 06: Carbon Dioxide 25 mmol/L (22-29) 03/27/23 06:23 Anion Gap 14.1 (5-19) 03/27/23 06:23 BUN 11 mg/dL (6-20) 03/27/23 06:23 Creatinine 0.8 mg/dL (0.7-1.2) 03/27/23 06:23 GFR Calculation 110.0 mL/min (90-130) 03/27/23 06:23 Glucose 104 mg/dL (65-115) 03/27/23 06:23 Calculated Osmolality 286 mOsm/kg (285-295) 03/27/23 06:23 Calcium 9.7 mg/dL (8.5-10.5) 03/27/23 06:23 Total Bilirubin 0.2 mg/dL (0.15-1.2) 03/27/23 06:23 AST 12 U/L (0-40) 03/27/23 06:23 ALT 8 U/L (0-41) 03/27/23 06:23 Alkaline Phosphatase 64 U/L (40-130) 03/27/23 06:23 Total Protein 7.1 g/dL (6.6-8.7) 03/27/23 06:23 Albumin 4.3 g/dL (3.5-5.2) 03/27/23 06:23 Globulin 2.8 g/dL (1.3-4.6) 03/27/23 06:23 Salicylates < 0.3 mg/dL (3-10) L 03/27/23 06:23 Acetaminophen < 5.0 ug/mL (10-30) L 03/27/23 06:23 Ethyl Alcohol < 10 mg/dL (0-10) 03/27/23 06:23 No radiology studies performed this visit Discharge Plan Discharge Patient Disposition: Admitted As Inpatient Clinical Impression: Schizophrenia, Medication side effect Condition: Stable Prescriptions: No Action paliperidone 6 mg tablet extended release 24hr 6 mg PO DAILY Qty: 30 1RF Coding Level of Care Code ED Wardrobe Attendant for Stevie Forde
[2023-03-27 06:52] LABS: Alanine Aminotransferase 8 U/L (0-41); Albumin Level 4.3 g/dL (3.5-5.2); Alkaline Phosphatase 64 U/L (40-130); Anion Gap 14.1 (5-19); Aspartate Amino Transferase 12 U/L (0-40); Blood Urea Nitrogen 11 mg/dL (6-20); Calcium 9.7 mg/dL (8.5-10.5); Carbon Dioxide 25 mmol/L (22-29); Chloride 103 mmol/L (98-107); Globulin 2.8 g/dL (1.3-4.6); Glucose 104 mg/dL (65-115); Osmolality Calculated 286 mOsm/kg (285-295); Potassium 4.1 mmol/L (3.5-5.1); Sodium 138 mmol/L (136-145); Total Bilirubin 0.2 mg/dL (0.15-1.2); Total Protein 7.1 g/dL (6.6-8.7)
[2023-03-27 06:53] LABS: Acetaminophen < 5.0 ug/mL (10-30); Alcohol Level < 10 mg/dL (0-10); Salicylate < 0.3 mg/dL (3-10)
[2023-03-27 07:31] VITALS: BP 127/78; PULSE 97; O2SAT 97
--- NOTE | 2023-03-27 07:35 | PC.PHAR ---
PT STATES HE DOESN'T MIND TAKING THE BEDTIME MEDICATIONS FOR SLEEP BUT DOES NOT LIKE THE BAD PLACE HE GOES TO WHEN TAKING PALIPERIDONE 6 MG ER AND DOES NOT WANT TO TAKE ANYMORE. 03/27/23
[2023-03-27 07:49] VITALS: BP 120/78; PULSE 97; RESP 17; O2SAT 99
[2023-03-27 10:42] LABS: Amphetamines Screen Urine Negative (Negative); Barbiturates Screen Urine Negative (Negative); Benzodiazepines Screen Urine Negative (Negative); Cocaine Screen Urine Negative (Negative); Opiate Screen Urine Negative (Negative); PCP Screen Urine Negative (Negative); THC Screen Urine Positive (Negative)
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
[2023-03-27] MEDS: nicotine 21 mg Patch 1 PATCH TRANSDERMA (13:11)
[2023-03-27] MEDS: OLANZapine 5 mg ODT PO (13:24)
[2023-03-27 13:32] VITALS: BP 116/77; PULSE 94; RESP 18; TEMP 36.4; O2SAT 97
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
[2023-03-27 19:41] VITALS: BP 103/72; PULSE 117; RESP 16; TEMP 36.8; O2SAT 99
[2023-03-27] MEDS: trazodone 100 mg Tablet PO (19:45)
[2023-03-27] MEDS: paliperidone ER 6 mg Tablet PO (19:46)
[2023-03-28 06:00] VITALS: BP 117/78; PULSE 111; RESP 16; TEMP 36.4; O2SAT 97
[2023-03-28] MEDS: nicotine 2 mg Gum BUCCAL (06:42)
[2023-03-28] MEDS: nicotine 21 mg Patch 1 PATCH TRANSDERMA (08:25)
[2023-03-28 09:10] LABS: Add Urine Microscopic? YES; Bilirubin Urine 1+ (Negative); Blood Urine Neg (Negative); Glucose Urine UA Norm (Normal); Ketones Urine 1+ (Negative); Leukocyte Esterase Urine Negative (Negative); Nitrate Urine Negative (Negative); Protein Urine Trace (Negative); Specific Gravity, Urine 1.025 (1.005-1.030); Urine Appearance Clear (CLEAR); Urine Color Dark Yellow (Yellow); Urobilinogen Urine Norm (Negative); pH Urine 5 (5-7)
[2023-03-28 09:24] LABS: Add Urine Culture? No; Bacteria Urine 1+ /hpf; Mucus Urine 2+ /hpf
[2023-03-28 14:00] VITALS: BP 120/75; PULSE 106; RESP 16; TEMP 36.8; O2SAT 97
--- NOTE | 2023-03-28 17:14 | P.NPUPN_ITS ---
Subjective NPU 2 Subjective: 37-year-old white male with a history of psychotic disorder likely induced by methamphetamine admitted with increased confusion and increased sedation. Patient had reported feeling much better with the move from Invega oral to the nighttime. He stated that he had slept much better. He had complained that 4 to 5 hours after taking his initial Invega he had felt weird . He states that yesterday night he had simply slept and did not have those unusual problems that were reported when he took that medication in the morning. He had requested that he be given something to help him with depression and stated that he had done better on Wellbutrin before in the past. Patient was compliant on the milieu. He did not report that his thoughts were racing. Mental Status Exam 2 MSE Comments: This is a short diminutive white male in hospital scrubs with limited grooming and eye contact. He appeared to recognize the author of this note. There is less psychomotor activity noted today. He was cooperative with exam and appeared in no acute distress this morning. Speech was less pressured with normal volume. His mood was described as better. His affect was odd today. Thought process was linear and logical. Thought content: Patient denied suicidal or homicidal ideation. There were no delusions reported with no evidence of paranoia. He did not report auditory or visual hallucinations and did not appear to be responding to internal stimuli. Attention and concentration was impaired and memory was unreliable but none were formally tested. He is alert and oriented to person and place and time. Insight was fair. Judgment was improving and impulse control remained somewhat guarded. Vitals/I&O/Wt Last Vital Signs Temp 98.3 F 03/28/23 14:00 Pulse 106 H 03/28/23 14:00 Resp 16 03/28/23 14:00 BP 120/75 03/28/23 14:00 Pulse Ox 97 03/28/23 14:00 O2 Del Method Room Air 03/28/23 14:00 Weight last 48 hrs Weight 59.024 kg Weight 59.024 kg Weight 54.431 kg Data NPU 03/27/23 06:23 03/27/23 06:23 A&P Assessment and plan (1) Alyce: (2) Acute psychosis: (3) Methamphetamine use disorder, severe: (4) Nicotine dependence, cigarettes, uncomplicated: (5) Cannabis dependence, uncomplicated: Plan This is a 37-year-old white male with a long history of addiction, mental health treatment and psychosis as far back as 5 to 6 years ago with methamphetamine recently discharged 11 days ago who appears once again with rapid speech and bizarre complaints of memory issues and sleep disturbance with concerns about compliance with his antipsychotic. 1. Continue Invega 6mg at night, trazodone 100mg at night.?Add Wellbutrin xl 150mg in am. 2. Encourage individual, group and milieu therapy. 3.? Continue q-15-minute checks for safety. 4.? Recommend sober living treatment at the highest level of care to which the patient is willing to commit. Involuntary Hold Information 2 96 Hour Hold: 96 Hour Involuntary Admission: No Attestations NPU 2 Medical Necessity Statement*: Inpatient hospitalization is medically necessary and the clinically appropriate intervention at this time. We will monitor medications and make changes as indicated. The patient will be in the hospital for over two midnights. The patient's likely length of stay is two to three days. Coding Level of Care Code Acute Code for [facility] Diagnoses Alyce F30.9 Acute psychosis F23 Methamphetamine use disorder, severe F15.20 Nicotine dependence, cigarettes, uncomplicated F17.210 Cannabis dependence, uncomplicated F12.20
[2023-03-28 19:20] VITALS: BP 107/71; PULSE 79; RESP 16; TEMP 37; O2SAT 97
[2023-03-28] MEDS: trazodone 100 mg Tablet PO (20:02)
[2023-03-28] MEDS: paliperidone ER 6 mg Tablet PO (20:02)
[2023-03-28] MEDS: hyDROXYzine 25 mg Capsule 50 MG PO (22:45)
[2023-03-29 06:00] VITALS: BP 119/81; PULSE 92; RESP 18; O2SAT 98
[2023-03-29] MEDS: nicotine 4 mg lozenge MUCOUS MEM (07:40)
[2023-03-29] MEDS: buPROPion XL (24 HR) 150 mg Tablet PO (08:16)
[2023-03-29] MEDS: nicotine 2 mg Gum BUCCAL (11:24)
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
[2023-03-29 12:13] VITALS: BP 119/81; PULSE 92; RESP 18; O2SAT 98
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
--- NOTE | 2023-03-30 09:06 | PC.OT ---
OT EVALUATION ORDERS RECEIVED. PATIENT D/C BEFORE EVALUATION COULD BE ATTEMPTED
== END 2023-03-29 12:27 | disposition home or self-care (01) | DRG 885 ==
LOC: ER 07:12 → NP 07:21
PROVIDERS: Admitting Provider Psychiatry & Neurology Psychiatry; Emergency Provider Family Medicine; Visit Provider Psychiatry & Neurology Psychiatry
DX: F23 Brief psychotic disorder (principal); F15.20 Other stimulant dependence, uncomplicated; F20.9 Schizophrenia, unspecified; F17.210 Nicotine dependence, cigarettes, uncomplicated; F12.20 Cannabis dependence, uncomplicated; T21.21XA Burn of second degree of chest wall, initial encounter; X11.8XXA Contact with other hot tap-water, initial encounter; Z91.148 Patient's other noncompliance with medication regimen for other reason; T31.0 Burns involving less than 10% of body surface; G47.00 Insomnia, unspecified; F06.8 Other specified mental disorders due to known physiological condition
CPT/HCPCS: 36415; 80053; 80306; 80307; 81001; 85025; 99285; Q0163

== ENCOUNTER → 2023-12-28 09:05 | Outpatient (BNVA) | payer OTHER, SELFPAY | PROVIDERS: PCP Family Medicine; Visit Provider Nurse Practitioner | DX: F33.3 Major depressive disorder, recurrent, severe with psychotic symptoms (principal) | CPT/HCPCS: 80061; 83036 ==

== ENCOUNTER → 2025-01-17 10:56 | Outpatient (BNVA) | payer OTHER, SELFPAY ==
[2023-12-31 14:49] VITALS: BP 111/64; BMI 24.4
== END ==
PROVIDERS: PCP Family Medicine; Visit Provider Nurse Practitioner
DX: F33.3 Major depressive disorder, recurrent, severe with psychotic symptoms (principal); F12.10 Cannabis abuse, uncomplicated; Z79.899 Other long term (current) drug therapy
CPT/HCPCS: 80061; 83036